=== PATIENT | female | born 1975 | race Caucasian/White ===

== ENCOUNTER 2017-07-31 14:02 | Emergency (ER) | payer MEDICAID, OTHER ==
[~2017-07-31] VITALS: Ht 180.3 cm; Wt 90.2 kg
[2017-07-31 14:18] VITALS: BP 169/102
[2017-07-31] MEDS ORDERED: METHOCARBAMOL 750 MG TABLET ONE (14:47)
[2017-07-31] MEDS ORDERED: ACETAMINOPHEN 500 MG TABLET ONE (14:48)
[2017-07-31] MEDS ORDERED: HYDROcodone/APAP 5/325 TABLET ONE (14:55)
[2017-07-31] MEDS ORDERED: HYDROcodone/APAP 5/325 TABLET PO ONE (15:00)
== END 2017-07-31 15:54 | disposition home or self-care (01) ==
LOC: ED 15:30
DX: S90.31XA Contusion of right foot, initial encounter (principal); S80.12XA Contusion of left lower leg, initial encounter; G35 Multiple sclerosis; Z87.891 Personal history of nicotine dependence; W01.0XXA Fall on same level from slipping, tripping and stumbling without subsequent striking against object, initial encounter; Y93.89 Activity, other specified; Y92.488 Other paved roadways as the place of occurrence of the external cause; Y99.8 Other external cause status
CPT/HCPCS: 99284